=== PATIENT | male | born 1940 | race Caucasian/White ===

== ENCOUNTER → 2018-03-14 | Outpatient (CLI) | payer MEDICARE | END | disposition home or self-care (01) | LOC: OIH 15:07 | PROVIDERS: ATTEND Physical Medicine & Rehabilitation | DX: M47.896 Other spondylosis, lumbar region (principal); M85.88 Other specified disorders of bone density and structure, other site | CPT/HCPCS: 72110 ==

== ENCOUNTER → 2019-04-10 | Outpatient (CLI) | payer MEDICARE | END | disposition home or self-care (01) | LOC: LAB 12:55 | PROVIDERS: ATTEND Internal Medicine Gastroenterology | DX: R19.4 Change in bowel habit (principal) | CPT/HCPCS: 87507 ==

== ENCOUNTER 2019-06-09 10:34 | Emergency (ER) | payer MEDICARE ==
[~2019-06-09 10:34] MED LIST: ALLO300T2 PO; AMLO5TAB9 PO; HYDR25TA PO; METO-391 PO; SODI650T PO; TAMS-1 PO; WARF3TAB59 PO; WARF6TAB49 PO
[2019-06-09 11:19] LABS: CREATININE 5.7 mg/dL (0.5-1.5)
[2019-06-09 11:20] LABS: BASOPHILS % (AUTO) 0.5 % (0.0-5.0); EOSINOPHILS % (AUTO) 0.4 % (0.0-8.0); HEMATOCRIT 34.7 % (42-54); LYMPHOCYTES % (AUTO) 19.7 % (21.0-51.0); MEAN CORPUSCULAR HEMOGLOBIN 29.1 pg (27.0-33.0); MEAN CORPUSCULAR HGB CONC 31.4 g/dL (32.0-36.0); MEAN CORPUSCULAR VOLUME 92.8 fL (79-99); MONOCYTES % (AUTO) 8.9 % (3.0-13.0); NEUTROPHILS % (AUTO) 70.1 % (40.0-77.0); PLATELET COUNT (AUTO) 288 K/uL (130-400); RED BLOOD CELL COUNT(AUTO) 3.74 MIL/uL (4.50-6.20); RED CELL DISTRIBUTION WIDTH 18.6 % (11.0-15.5); WHITE BLOOD COUNT (AUTO) 5.5 K/uL (4.8-10.8)
[2019-06-09 11:23] LABS: ALBUMIN 3.3 g/dL (3.5-5.0); BILIRUBIN,TOTAL 0.5 mg/dL (0.2-1.0); TOTAL PROTEIN, SERUM 7.3 g/dL (6.0-8.3)
[2019-06-09 12:14] LABS: INR 0.95 (0.85-1.15); PARTIAL THROMBOPLASTIN TIME 25.7 SEC (26.3-35.5)
== END 2019-06-09 15:17 | disposition home or self-care (01) ==
LOC: EDH 10:34
DX: T82.43XA Leakage of vascular dialysis catheter, initial encounter (principal); N18.6 End stage renal disease; I10 Essential (primary) hypertension; I48.91 Unspecified atrial fibrillation; Z88.0 Allergy status to penicillin; Z88.1 Allergy status to other antibiotic agents; Z88.5 Allergy status to narcotic agent
CPT/HCPCS: 36415; 71045; 80053; 82550; 84484; 85025; 85610; 85730; 93005

== ENCOUNTER 2019-06-10 07:21 | Day surgery (SDC) | payer MEDICARE ==
[2019-06-10 08:00] VITALS: BP 153/65
[2019-06-10] MEDS ORDERED: LIDOCAINE HCL 1% MDV 50ML VIAL ONE (09:05)
[2019-06-10 10:00] VITALS: BP 165/76
[2019-06-10 10:15] VITALS: BP 170/90
[2019-06-10 10:30] VITALS: BP 168/85
== END 2019-06-10 10:50 | disposition home or self-care (01) ==
LOC: DAH 07:21 → DAHIP 07:21 → DAH 10:50
PROVIDERS: ATTEND Internal Medicine Nephrology
DX: T82.898A Other specified complication of vascular prosthetic devices, implants and grafts, initial encounter (principal); Y83.8 Other surgical procedures as the cause of abnormal reaction of the patient, or of later complication, without mention of misadventure at the time of the procedure; N18.6 End stage renal disease; Z99.2 Dependence on renal dialysis; Z88.8 Allergy status to other drugs, medicaments and biological substances; Z88.0 Allergy status to penicillin; Z88.1 Allergy status to other antibiotic agents; Z88.5 Allergy status to narcotic agent; Z79.899 Other long term (current) drug therapy; Z82.49 Family history of ischemic heart disease and other diseases of the circulatory system
CPT/HCPCS: 36558; 77001; A4606; C1750; G0378; J1644; J3490

== ENCOUNTER 2022-11-25 09:46 | Emergency (ER) | payer MEDICARE ==
[~2022-11-25] VITALS: Ht 170.2 cm; Wt 79.4 kg
[~2022-11-25 09:46] MED LIST changes: -ALLO300T2 PO; -AMLO5TAB9 PO; +CINA30TA5 PO; +FOLI0.8T2 PO; -HYDR25TA PO; +IRON 65 MG PO; +METO5 PO; +SEVE800T7 PO; -SODI650T PO; -WARF3TAB59 PO; -WARF6TAB49 PO; +[UNRECOGNIZED DRUG - OTHER] PO
[2022-11-25 10:26] LABS: BILIRUBIN,URINE NEGATIVE (NEGATIVE); COLOR,URINE LIGHT-YELLOW (YELLOW); GLUCOSE, URINE (UA) NEGATIVE (NEGATIVE); KETONES,URINE NEGATIVE (NEGATIVE); LEUKOCYTE ESTERASE ,URINE 500 Leu/uL (NEGATIVE); NITRATE,URINE NEGATIVE (NEGATIVE); OCCULT BLOOD,URINE SMALL (NEGATIVE); PROTEIN,URINE 100 mg/dL (NEGATIVE); UROBILINOGEN,URINE 0.2 mg/dL (0.2-1.0)
[2022-11-25 10:30] LABS: APPEARANCE,URINE HAZY (CLEAR)
[2022-11-25] MEDS ORDERED: LIDOCAINE HCL 2% JELLY 5 ML TP SCH ×2 (10:30)
[2022-11-25 10:34] LABS: BACTERIA,URINE RARE /HPF (None Seen); SQUAMOUS EPITHELIAL CELL,UR RARE /HPF (0-2); WBC,URINE TNTC /HPF (0-1)
[2022-11-25 11:03] LABS: BASOPHILS % (AUTO) 0.2 % (0.0-5.0); HEMATOCRIT 25.2 % (42-54); LYMPHOCYTES % (AUTO) 7.4 % (21.0-51.0); MEAN CORPUSCULAR HEMOGLOBIN 29.7 pg (27.0-33.0); MEAN CORPUSCULAR HGB CONC 32.9 g/dL (32.0-36.0); MEAN CORPUSCULAR VOLUME 90.3 fL (79-99); MONOCYTES % (AUTO) 10.9 % (3.0-13.0); NEUTROPHILS % (AUTO) 80.1 % (40.0-77.0); PLATELET COUNT (AUTO) 194 K/uL (130-400); RED BLOOD CELL COUNT(AUTO) 2.79 MIL/uL (4.50-6.20); RED CELL DISTRIBUTION WIDTH 17.7 % (11.0-15.5); WHITE BLOOD COUNT (AUTO) 4.9 K/uL (4.8-10.8)
[2022-11-25 11:16] LABS: ALBUMIN 1.7 g/dL (3.5-5.0); CREATININE 7.5 mg/dL (0.5-1.5); TOTAL PROTEIN, SERUM 4.7 g/dL (6.0-8.3)
[2022-11-25 12:30] VITALS: BP 132/76; PULSE 74; RESP 18; O2SAT 98
== END 2022-11-25 12:30 | disposition home or self-care (01) ==
LOC: EDH 09:46
DX: R33.9 Retention of urine, unspecified (principal); N18.9 Chronic kidney disease, unspecified; I13.2 Hypertensive heart and chronic kidney disease with heart failure and with stage 5 chronic kidney disease, or end stage renal disease; I50.9 Heart failure, unspecified; N31.9 Neuromuscular dysfunction of bladder, unspecified; E87.6 Hypokalemia; N13.9 Obstructive and reflux uropathy, unspecified; I48.91 Unspecified atrial fibrillation; Z79.899 Other long term (current) drug therapy; Z99.2 Dependence on renal dialysis; Z88.0 Allergy status to penicillin; Z88.1 Allergy status to other antibiotic agents; Z88.5 Allergy status to narcotic agent; Z89.611 Acquired absence of right leg above knee
CPT/HCPCS: 36415; 51702; 80053; 81001; 85025

== ENCOUNTER 2023-02-01 07:19 | Day surgery (SDC) | payer MEDICARE ==
[2023-01-30 11:38] VITALS: BP 118/73; PULSE 65; RESP 15
[2023-01-30 11:40] LABS: BASOPHILS # (AUTO) 0.01 K/uL (0.00-0.20); BASOPHILS % (AUTO) 0.2 % (0.0-5.0); EOSINOPHILS # (AUTO) 0.15 K/uL (0.00-0.70); EOSINOPHILS % (AUTO) 2.5 % (0.0-8.0); HEMATOCRIT 30.5 % (42-54); IMMATURE GRANULOCYTE ABSOLUTE 0.02 K/uL (0-1); LYMPHOCYTES # (AUTO) 0.8 K/uL (1.0-4.8); MEAN CORPUSCULAR HEMOGLOBIN 29.9 pg (27.0-33.0); MEAN CORPUSCULAR HGB CONC 31.1 g/dL (32.0-36.0); MEAN CORPUSCULAR VOLUME 95.9 fL (79-99); MONOCYTES # (AUTO) 0.5 K/uL (0.1-1.0); NEUTROPHILS # (AUTO) 4.5 K/uL (1.8-7.7); PLATELET COUNT (AUTO) 405 K/uL (130-400); RED BLOOD CELL COUNT(AUTO) 3.18 MIL/uL (4.50-6.20); RED CELL DISTRIBUTION WIDTH 15.7 % (11.0-15.5)
[2023-01-30 11:48] LABS: CREATININE 7.3 mg/dL (0.5-1.5)
[2023-01-30 11:50] LABS: INR 1.03 (0.85-1.15); PROTHROMBIN TIME 11.9 SEC (9.6-11.6)
[2023-01-30 11:51] LABS: PARTIAL THROMBOPLASTIN TIME 28.2 SEC (26.3-35.5)
[2023-01-30 12:02] LABS: POTASSIUM 2.9 mmol/L (3.5-5.1)
[~2023-02-01] VITALS: Ht 165.1 cm; Wt 78.9 kg
[2023-02-01] VITALS (17 sets, daily range): BP systolic 93–127; BP diastolic 41–62; PULSE 68–89; RESP 11–18
[~2023-02-01 07:19] MED LIST changes: -IRON 65 MG PO; +MEGE40TA5 PO; -TAMS-1 PO; -[UNRECOGNIZED DRUG - OTHER] PO
[2023-02-01] MEDS ORDERED: 0.9% NACL 500ML IV.SOLN 500 ML IV ONE (07:38)
[2023-02-01 08:08] LABS: POTASSIUM 3.1 mmol/L (3.5-5.1)
[2023-02-01 08:12] LABS: CREATININE 8.2 mg/dL (0.5-1.5)
[2023-02-01] MEDS ORDERED: MIDAZOLAM HCL 1 MG/ML 2ML VIAL ONE (09:00)
[2023-02-01] MEDS ORDERED: SUCCINYLCHOLINE 200MG/10ML SYR ONE (09:00)
[2023-02-01] MEDS ORDERED: FENTANYL CITRATE PF 50 MCG/1 ML 2ML VIAL ONE ×3 (09:01→11:18)
[2023-02-01] MEDS ORDERED: PROPOFOL 10 MG/ML 20ML VIAL IV ONE (09:01)
[2023-02-01] MEDS ORDERED: ROCURONIUM 10MG/1ML SYR 10 MG/ML ML ONE (09:01)
[2023-02-01] MEDS: CEFTRIAXONE 1G VIAL ONE ×2 (09:17→09:39)
[2023-02-01] MEDS ORDERED: PHENYLEPHRINE HCL 10 MG/ML 1ML VIAL IV ONE (09:25)
[2023-02-01] MEDS ORDERED: ONDANSETRON 4MG INJ ONE ×2 (10:05→11:02)
[2023-02-01] MEDS ORDERED: NEOSTIGMINE 5MG/5ML SYR IV ONE (10:36)
[2023-02-01] MEDS ORDERED: GLYCOPYRROLATE 1 MG/5 ML SYRINGE ONE (10:36)
[2023-02-01] MEDS ORDERED: MEPERIDINE-PF 25 MG/ML SYG ONE ×2 (10:48→11:02)
[2023-02-01] MEDS ORDERED: BACITRACIN 1 EACH PACKET TP ONE (12:30)
== END 2023-02-01 12:45 | disposition home or self-care (01) ==
LOC: DAH 07:19
PROVIDERS: ATTEND Urology
DX: N40.1 Benign prostatic hyperplasia with lower urinary tract symptoms (principal); R33.8 Other retention of urine; I12.0 Hypertensive chronic kidney disease with stage 5 chronic kidney disease or end stage renal disease; N18.6 End stage renal disease; I48.91 Unspecified atrial fibrillation; I25.2 Old myocardial infarction; Z79.899 Other long term (current) drug therapy; Z79.01 Long term (current) use of anticoagulants; Z88.0 Allergy status to penicillin; Z88.8 Allergy status to other drugs, medicaments and biological substances; Z98.890 Other specified postprocedural states; Z99.2 Dependence on renal dialysis; Z86.73 Personal history of transient ischemic attack (TIA), and cerebral infarction without residual deficits
CPT/HCPCS: 80048 ×2; 85025; 85610; 85730; 36415 ×2; 71045; 93005; 52648; A6260; A4663; J7030; A4354; J7040; J3010 ×3; J0330; J3490; J2710; J0696; J2250; J2704; J2405 ×2; J2175 ×2; J2371; A4358; A4930; A4215; A4223; A4222; A4221; A4600